=== PATIENT | female | born 1975 | race Caucasian/White ===

== ENCOUNTER 2017-10-26 07:36 | Inpatient (IN) | payer OTHER ==
--- NOTE | 2017-10-26 07:47 | CPEKG ---
Heart Rate: 57 RR Interval: 1053 P-R Interval: 156 QRSD Interval: 78 QT Interval: 428 QTC Interval: 417 P Dayton: 7 QRS Dayton: 82 T Wave Dayton: 25 EKG Severity - BORDERLINE ECG - EKG Impression: SINUS ARRHYTHMIA, RATE 52-63 EKG Impression: VENTRICULAR PREMATURE COMPLEX EKG Impression: INTERPOLATED VENTRICULAR PREMATURE COMPLEX EKG Impression: ST ELEV, PROBABLE NORMAL EARLY REPOL PATTERN Electronically Signed By: Nicola Sanchez 26-Oct-2017 07:52:17
[2017-10-26] MEDS ORDERED: ASPIRIN 325 MG TAB PO ONE (07:49)
[2017-10-26] MEDS ORDERED: ASPIRIN 81 MG CHEWABLE TAB ONE (07:51)
[2017-10-26] MEDS ORDERED: IOPAMIDOL (ISOVUE-370) 150 ML BTL IV ONE (07:53)
[2017-10-26] MEDS ORDERED: MIDAZOLAM 2 MG/2 ML VIAL ONE (07:53)
[2017-10-26] MEDS ORDERED: fentaNYL 100 MCG/2 ML INJ ONE (07:53)
[2017-10-26] MEDS ORDERED: LIDOCAINE 1% 300 MG/30 ML SDV ONE (07:53)
[2017-10-26] MEDS ORDERED: ATROPINE SULFATE 1 MG/10 ML SYR ONE (07:54)
[2017-10-26] MEDS ORDERED: BIVALIRUDIN 250 MG/5 ML VIAL IV ONE (07:54)
[2017-10-26] MEDS ORDERED: HEPARIN 10,000 UNIT/10 ML MDV (1,000 UNIT/ML) ONE (07:54)
--- NOTE | 2017-10-26 07:54 | CPEKG ---
Heart Rate: 73 RR Interval: 822 P-R Interval: 148 QRSD Interval: 76 QT Interval: 416 QTC Interval: 459 P Mcdavid: 46 QRS Mcdavid: 84 T Wave Mcdavid: 44 EKG Severity - ABNORMAL ECG - EKG Impression: SINUS ARRHYTHMIA, RATE 57-75 EKG Impression: LATERAL INFARCT, OLD EKG Impression: BORDERLINE ST ELEVATION, ANTERIOR LEADS Electronically Signed By: Nicola Sanchez 26-Oct-2017 07:57:08
--- NOTE | 2017-10-26 07:56 | EDPHY ---
H & P Stated Complaint: CP Time Seen by Provider: 10/26/17 07:47 HPI/ROS: CHIEF COMPLAINT: Chest pain while running HISTORY OF PRESENT ILLNESS: The patient is a 42-year-old extremely fit thin female who was running this morning when she developed chest pain. She stopped running and drove to the emergency department. She states that her pain began about half an hour ago. She is anxious and states that both hands are beginning to go numb. She denies any history of cardiac or other medical conditions. She has felt slightly nauseous but has not had any vomiting. No lightheadedness or dizziness. No shortness of breath. REVIEW OF SYSTEMS: Constitutional: denies: chills, fever, recent illness, recent injury EENTM: denies: blurred vision, double vision, nose congestion Respiratory: denies: cough, shortness of breath Cardiac: See HPI Gastrointestinal/Abdominal: denies: abdominal pain, diarrhea, nausea, vomiting, blood streaked stools Genitourinary: denies: dysuria, frequency, hematuria, pain Musculoskeletal: denies: joint pain, muscle pain Skin: denies: lesions, rash, jaundice, bruising Neurological: denies: headache, numbness, paresthesia, tingling, dizziness, weakness Hematologic/Lymphatic: denies: blood clots, easy bleeding, easy bruising Immunologic/allergic: denies: HIV/AIDS, transplant EXAM: GENERAL: Pain neck, thin, fit. HEAD: Atraumatic, normocephalic. EYES: Pupils equal round and reactive to light, extraocular movements intact, sclera anicteric, conjunctiva are normal. ENT: TMs normal, nares patent, oropharynx clear without exudates. Moist mucous membranes. NECK: Normal range of motion, supple without lymphadenopathy or JVD. LUNGS: Breath sounds clear to auscultation bilaterally and equal. No wheezes rales or rhonchi. HEART: Regular rate and rhythm without murmurs, rubs or gallops. ABDOMEN: Soft, nontender, normoactive bowel sounds. No guarding, no rebound. No masses appreciated. BACK: No CVA tenderness, no spinal tenderness, step-offs or deformities EXTREMITIES: Normal range of motion, no pitting or edema. No clubbing or cyanosis. NEUROLOGICAL: Cranial nerves II through XII grossly intact. Normal speech, normal gait. 5/5 strength, normal movement in all extremities, normal sensation PSYCH: Normal mood, normal affect. SKIN: Warm, dry, normal turgor, no visible rashes or lesions. Source: Patient, Family Exam Limitations: No limitations - Personal History LMP (Females 10-55): 22-28 Days Ago Current Tetanus/Diphtheria Vaccine: Yes Current Tetanus Diphtheria and Acellular Pertussis (TDAP): Yes Tetanus Vaccine Date: within 10 years - Medical/Surgical History Hx Asthma: No Hx Chronic Respiratory Disease: No Hx Diabetes: No Hx Cardiac Disease: No Hx Renal Disease: No Hx Cirrhosis: No Hx Alcoholism: No Hx HIV/AIDS: No Hx Splenectomy or Spleen Trauma: No Other PMH: denies medical/surg hx - Family History Significant Family History: No pertinent family hx - Social History Smoking Status: Never smoked Alcohol Use: Sober Drug Use: None Constitutional: Initial Vital Signs Temperature (C) 36.4 C 10/26/17 07:37 Heart Rate 84 10/26/17 07:37 Respiratory Rate 20 10/26/17 07:37 Blood Pressure 151/99 H 10/26/17 07:37 O2 Sat (%) 100 10/26/17 07:37 O2 Delivery Mode Room Air Allergies/Adverse Reactions: No Known Allergies Allergy (Unverified 10/26/17 07:37) Home Medications: Medication Instructions Recorded NK [No Known Home Meds] 10/26/17 Medical Decision Making - Diagnostics EKG Interpretation: An EKG obtained and was read and documented in trace view. Please see trace view for full reading and report. ST elevation in V 3 4 and 5, no reciprocal changes Imaging Results: Imaging Impressions Chest X-Ray 10/26/17 07:49 Impression: 1. No acute pulmonary disease. 2. Consider chest two views when the patient's medical condition permits. Imaging: Discussed imaging studies w/ dredge operator supervisor Radiologist ED Course/Re-evaluation: 7:55 a.m. The cardiology PA is here to evaluate. Research Administrator is on their way. 8:30 a.m. on patient's echo she did have some anterior wall wall motion abnormality. She has been taking up to the radiographer cardiac catheterization. Differential Diagnosis: Partial list of the Differential diagnosis considered include but were not limited to; acute coronary disease, anxiety and although unlikely based on the history and physical exam, I also considered PE, dissection, pneumothorax. Critical Care Time: Critical care time spent by me, Dr. Sanchez exclusive with this patient was 30 minutes, exclusive of the PA time exclusive of procedures. The organ system that was at risk was cardiovascular and I gave IV, medications, workup and consultation to prevent worsening of the patient's condition - Data Points Laboratory Results: Laboratory Results 10/26/17 07:54 10/26/17 07:54 10/26/17 10/26/17 10/26/17 07:54 07:54 07:54 WBC RBC Hgb POC Hgb Hct POC Hct MCV MCH MCHC RDW Plt Count MPV Neut % (Auto) Lymph % (Auto) Haskell % (Auto) Eos % (Auto) Baso % (Auto) Nucleat RBC Rel Count Absolute Neuts (auto) Absolute Lymphs (auto) Absolute Monos (auto) Absolute Eos (auto) Absolute Basos (auto) Absolute Nucleated RBC Immature Gran % Immature Gran # PT 13.2 SEC SEC (12.0-15.0) INR 0.98 (0.83-1.16) APTT 22.7 SEC L SEC (23.0-38.0) Turbidity Cancelled POC Sodium Sodium Cancelled POC Potassium Potassium Cancelled POC Chloride Chloride Cancelled Carbon Dioxide Cancelled Anion Gap Cancelled POC BUN BUN Cancelled Creatinine Cancelled POC Creatinine Estimated GFR Cancelled Glucose Cancelled POC Glucose Calcium Cancelled Magnesium Cancelled Troponin I Triglycerides Cancelled Cholesterol Cancelled Cholesterol Risk Factr Cancelled LDL Cholesterol, Calc Cancelled LDL Risk Factor Cancelled VLDL Cholesterol Cancelled Non-HDL Cholesterol Cancelled HDL Cholesterol Cancelled LDL/HDL Ratio Cancelled Cholesterol/HDL Ratio Cancelled Beta HCG, Qual NEGATIVE Specimen Hemolysis Cancelled 10/26/17 10/26/17 10/26/17 07:54 07:54 07:48 WBC 7.54 10^3/uL 10^3/uL (3.80-9.50) RBC 4.75 10^6/uL 10^6/uL (4.18-5.33) Hgb 16.2 g/dL g/dL (12.6-16.3) POC Hgb 15.6 gm/dL gm/dL (12.6-16.3) Hct 44.7 % % (38.0-47.0) POC Hct 46 % % (38-47) MCV 94.1 fL fL (81.5-99.8) MCH 34.1 pg pg (27.9-34.1) MCHC 36.2 g/dL g/dL (32.4-36.7) RDW 12.3 % % (11.5-15.2) Plt Count 208 10^3/uL 10^3/uL (150-400) MPV 10.2 fL fL (8.7-11.7) Neut % (Auto) 42.2 % % (39.3-74.2) Lymph % (Auto) 47.5 % H % (15.0-45.0) Haskell % (Auto) 8.0 % % (4.5-13.0) Eos % (Auto) 1.3 % % (0.6-7.6) Baso % (Auto) 0.9 % % (0.3-1.7) Nucleat RBC Rel Count 0.0 % % (0.0-0.2) Absolute Neuts (auto) 3.18 10^3/uL 10^3/uL (1.70-6.50) Absolute Lymphs (auto) 3.58 10^3/uL H 10^3/uL (1.00-3.00) Absolute Monos (auto) 0.60 10^3/uL 10^3/uL (0.30-0.80) Absolute Eos (auto) 0.10 10^3/uL 10^3/uL (0.03-0.40) Absolute Basos (auto) 0.07 10^3/uL 10^3/uL (0.02-0.10) Absolute Nucleated RBC 0.00 10^3/uL 10^3/uL (0-0.01) Immature Gran % 0.1 % % (0.0-1.1) Immature Gran # 0.01 10^3/uL 10^3/uL (0.00-0.10) PT INR APTT Turbidity POC Sodium 139 mEq/L mEq/L (134-144) Sodium 141 mEq/L mEq/L (135-145) POC Potassium 3.5 mEq/L mEq/L (3.3-5.0) Potassium 4.0 mEq/L mEq/L (3.5-5.2) POC Chloride 104 mEq/L mEq/L (97-110) Chloride 103 mEq/L mEq/L (97-110) Carbon Dioxide 18 mEq/l L mEq/l (22-31) Anion Gap 20 mEq/L H mEq/L (8-16) POC BUN 12 mg/dL mg/dL (7-23) BUN 12 mg/dL mg/dL (7-23) Creatinine 0.9 mg/dL mg/dL (0.6-1.0) POC Creatinine 0.9 mg/dL mg/dL (0.6-1.0) Estimated GFR > 60 Glucose 118 mg/dL H mg/dL (70-100) POC Glucose 122 mg/dL H mg/dL (70-100) Calcium 10.5 mg/dL H mg/dL (8.5-10.4) Magnesium 1.9 mg/dL mg/dL (1.6-2.3) Troponin I < 0.012 ng/mL ng/mL (0.000-0.034) Triglycerides 87 mg/dL mg/dL (35-135) Cholesterol 202 mg/dL H mg/dL (140-200) Cholesterol Risk Factr 0.2 (0.2-1.0) LDL Cholesterol, Calc 51 mg/dL L mg/dL (70-100) LDL Risk Factor 0.4 (0.2-1.0) VLDL Cholesterol 17 mg/dL mg/dL (8-25) Non-HDL Cholesterol 68 mg/dL L mg/dL (90-129) HDL Cholesterol 134 mg/dL H mg/dL (40-95) LDL/HDL Ratio 0.38 RATIO L RATIO (1.00-3.22) Cholesterol/HDL Ratio 1.51 RATIO RATIO (1.00-4.44) Beta HCG, Qual Specimen Hemolysis Medications Given: Nitroglycerin (Nitrostat) 0.4 mg SL Q5M PRN PRN Reason: Chest Pain Last Admin: 10/26/17 08:20 Dose: 0.4 mg Discontinued Medications Aspirin (Aspirin) 325 mg PO EDNOW ONE Stop: 10/26/17 07:50 Last Admin: 10/26/17 07:59 Dose: 325 mg Point of Care Test Results: 10/26/17 07:48 POC Sodium 139 POC Potassium 3.5 POC Chloride 104 POC BUN 12 POC Creatinine 0.9 POC Glucose 122 H Departure - Departure Disposition: [facility] Inpatient Acute Clinical Impression: Chest pain Qualifiers: Chest pain type: unspecified Qualified Code(s): R07.9 - Chest pain, unspecified Condition: Critical
[2017-10-26 08:02] LABS: PLATELET COUNT 208 10^3/uL (150-400)
[2017-10-26] MEDS: NITROGLYCERIN 0.4 MG BTL SL PRN ×2 (08:03→08:20)
[2017-10-26 08:12] LABS: INR 0.98 (0.83-1.16); PROTIME(PATIENT) 13.2 SEC (12.0-15.0)
[2017-10-26] MEDS ORDERED: OXYCODONE/APAP 5/325 TAB PO PRN (08:14)
[2017-10-26] MEDS ORDERED: TEMAZEPAM 15 MG CAP PO PRN (08:14)
[2017-10-26] MEDS ORDERED: CLOPIDOGREL BISULFATE 75 MG TAB PO ONE (08:14)
[2017-10-26] MEDS ORDERED: HYDROCODONE/APAP 5/325 TAB PO PRN (08:14)
[2017-10-26] MEDS ORDERED: NITROGLYCERIN 0.4 MG BTL SL PRN (08:14)
[2017-10-26] MEDS ORDERED: LORazepam 2 MG/ML INJ IVP PRN (08:14)
[2017-10-26] MEDS ORDERED: ATROPINE SULFATE 1 MG/10 ML SYR IVP PRN (08:14)
[2017-10-26] MEDS ORDERED: ONDANSETRON 4 MG/2 ML VIAL IVP PRN (08:14)
[2017-10-26] MEDS ORDERED: DIAZEPAM 5 MG TAB PO ONE (08:18)
[2017-10-26] MEDS ORDERED: diphenhydrAMINE 25 MG CAP PO ONE (08:18)
[2017-10-26] MEDS ORDERED: FAMOTIDINE 20 MG TAB PO ONE (08:18)
[2017-10-26] MEDS ORDERED: NS 1,000 ML IV SCH ×2 (08:30→10:15)
[2017-10-26] MEDS ORDERED: NITROGLYCERIN 1,500 MCG/15 ML VIAL MISC ONE (08:41)
--- NOTE | 2017-10-26 08:54 | PDDXCAT ---
Diagnostic Cath Note - . Date: 10/26/17 Percussion Instrument Repairer: Dean - Procedure Access: right groin Procedure: left heart catheterization - Materials Left Heart Cath size: 6F Left Heart Cath materials: standard multipack (JL4, JR4, pigtail) - Findings-Left Heart Catheterization LAD: Dissection. 95% obstruction LVEF: 50% with distal inferior wall hypokinesis Complications: None. Estimated blood loss: <50ml Intervention: A 6 Serbian 3.5 JL Convey guide catheter support. A 0.014 Intuition wire was advanced across the LAD under direct fluoroscopic and angiographic guidance A Synergy 2.0 x 28mm stent 2.5x 20mm Synergy stent 3.0 x 12mm Synergy stent 95% obstruction SCAD Patient Problems: Problems Problem Status Onset Chest pain Acute Pneumothorax, left Acute Rib fracture Acute
[2017-10-26] MEDS ORDERED: PRASUGREL HCL 10 MG TAB ONE (09:11)
--- NOTE | 2017-10-26 09:36 | CPEKG ---
Heart Rate: 38 RR Interval: 1579 P-R Interval: 160 QRSD Interval: 74 QT Interval: 528 QTC Interval: 420 P Mulberry: 55 QRS Mulberry: 76 T Wave Mulberry: -10 EKG Severity - OTHERWISE NORMAL ECG - EKG Impression: SINUS BRADYCARDIA Electronically Signed By: Kwadwo Stoner 26-Oct-2017 16:18:51
[2017-10-26] MEDS ORDERED: PRASUGREL HCL 10 MG TAB PO ONE (10:01)
--- NOTE | 2017-10-26 11:00 | GHP ---
[f rep st] HISTORY AND PHYSICAL DATE OF ADMISSION: 10/26/2017 CHIEF COMPLAINT: ST-elevation IL. HISTORY OF PRESENT ILLNESS: The patient is a 42-year-old female with a past medical history of asymp tomatic bradycardia, who is admitted through the emergency department after being noted to have an ST -elevation IL. Prior to arrival in the emergency department, she had noted the onset of chest pain w hile running on the treadmill. She describes a dull midsternal chest discomfort with radiation into her bilateral arms associated with dyspnea and diaphoresis. She slowed down her pace and symptoms pe rsisted. She was driving home and called her mother, who recommended she come into the emergency dep artment for further evaluation. At that time, she was noted to have ST elevations in V3 through V5, and a cardiac alert was called. Despite several doses of nitroglycerin, she did not achieve pain con trol. She was urgently taken to the cardiac catheterization laboratory after echo showed apical wall motion abnormality. 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 PAST MEDICAL HISTORY: Includes asymptomatic bradycardia. SOCIAL HISTORY: Patient is . She denies any tobacco abuse. No significant alcohol intake. PAST SURGICAL HISTORY: Skin biopsy. FAMILY HISTORY: Celiac disease and pancreatic cancer. OUTPATIENT MEDICATIONS: She has a ParaGard IUD. ALLERGIES: No known drug allergies. REVIEW OF SYSTEMS: As per HPI. A complete 10-point review of systems was obtained and is negative e xcept for what is dictated. PHYSICAL EXAMINATION: VITAL SIGNS: BP of 117/78, heart rate 58, respirations 16, O2 saturation 95% on 2 L/min. GENERAL: She is a very pleasant female, in mild distress. HEENT: Head is normocephali c, atraumatic. Eyes are without scleral icterus. Mucous membranes moist. HEART: Regular rate and rhythm. LUNGS: Clear. ABDOMEN: Asthenic with normoactive bowel sounds. SKIN: Warm and dry. LORENZA RO: No focal deficits detected. LABORATORY DATA: CBC with WBC 7.54, hemoglobin 16.2, hematocrit 44.7, platelet count of 208. BMP wi th sodium 141, potassium 4, chloride 103, CO2 of 18, BUN 12, creatinine 0.9, glucose 118. LDL 51, to janay cholesterol of 202, HDL of 134. Beta HCG is negative. Troponin initially was less than 0.012. 12-lead ECG personally interpreted demonstrates sinus rhythm with ST-elevation in V3 through V5. Merari st x-ray shows no acute cardiopulmonary process. This was personally reviewed. I discussed care wit h Dr. Moran and Dr. Sanchez. IMPRESSION AND PLAN: The patient is a 42-year-old female who presents with chest pain. 1. ST-elevation myocardial infarction. She is found to have an acute ST-elevation IL. Differential for this includes spontaneous coronary artery dissection, takotsubo variant, or myocarditis. Upon b eing taken to the cardiac catheterization laboratory, she was found to have mid-left anterior descend ing artery dissection which was treated with percutaneous transluminal coronary angioplasty and stent ing. She is being admitted to PCU for further observation and care. 2. Chest pain due to above. 3. Code status: Patient will be full code. 4. Inpatient status: Patient is being admitted to inpatient status for post-myocardial infarction c are. Appropriate medical therapies are to be initiated in this timeframe. /[id number]/MODL
--- NOTE | 2017-10-26 12:40 | ECHO ---
[email or web address] [place] [id number] Main: [phone] Fax: Transthoracic Echocardiogram Name: CORNELL ROBINS MR#: [id number] Study Date: 10/26/2017 Study Time: 08:16 AM Date of : 1975 Age: 42 year(s) Height: ( ) Weight: ( ) BSA: Gender: Female Examination: Echo Indication: Cardiac Alert Image Quality: Contrast: Requested by: Nicola Sanchez BP: / Heart Rate: Rhythm: Indication: Cardiac Alert Procedure Staff Skin Peeling Machine Operator: Pedro Williamson Physician: Brandon Haider Requesting Provider: Conclusions: There is focal mid to apical anteroseptal hypokinesis. There is apical hypokinesis.. This is a stat limited echo to evaluate for LV wall motion during a cardiac alert. Low normal LVEF was noted (50%) Measurements: Chambers Valvular Assessment AV/MV Valvular Assessment TV/PV Normal Normal Normal Name Value Range Name Value Range Name Value Range Continued Measurements: Findings: Left Ventricle: There is focal mid to apical anteroseptal hypokinesis. There is apical hypokinesis.. Exam Comments: This is a stat limited echo to evaluate for LV wall motion during a cardiac alert. (No Signature Object) Patient: CORNELL ROBINS Study Date: 10/26/2017 Page 1 of 1 08:16 AM [id number]
[2017-10-26 12:42] LABS: CREATINE KINASE 45 IU/L (0-156)
[2017-10-26 14:18] LABS: CREATINE KINASE 51 IU/L (0-156)
[2017-10-26] MEDS: ASPIRIN EC 325 MG TAB PO SCH (17:14)
[2017-10-26 18:47] LABS: CREATINE KINASE 57 IU/L (0-156)
[2017-10-26 20:57] LABS: CREATINE KINASE 53 IU/L (0-156)
--- NOTE | 2017-10-27 04:16 | CPIP ---
[f rep st] INVASIVE CARDIAC PROCEDURE DATE OF PROCEDURE: 10/26/2017 PROCEDURE PERFORMED: 1. Selective coronary angiography. 2. Left heart catheterization. 3. Left ventriculogram. 4. Percutaneous transluminal coronary angioplasty and stent implantation of the left anterior descen ding with initially a 3.0 x 28 Synergy drug-eluting stent overlapping distally with a 2.5 x 20 Synerg y drug-eluting stent and then overlapping proximally to cuff a dissection with a 3.0 x 12 Synergy yahir g-eluting stent. COMPLICATIONS: None. INDICATIONS/APPROPRIATE USE CRITERIA: The patient had presented to the hospital, when chest pain and pressure began when exercising while running a less than 640 minute mile. She experienced sudden on set of severe chest discomfort and drove herself to the emergency department for further evaluation. An EKG was obtained within minutes of her arrival, documenting ST-segment elevation injury pattern s uggestive of an anterior myocardial infarction. PROCEDURE IN DETAIL: After informed consent was obtained, because of the emergency nature of the sit uation, the patient was taken to the laboratory tester after an echocardiogram was performed, documented dista l anterior wall and apical hypokinesis, suggestive of a problem with blood flow to the left ventricle versus a Takotsubo type syndrome. On the differential was the consideration of SCAD, Takotsubo card iomyopathy versus a focal myocarditis/pericarditis type picture. The region of the right groin was cleaned, prepped, and draped in sterile fashion. A micropuncture s et was used to gain access to the right common femoral artery. Patient then underwent the previously mentioned diagnostic procedure with a JR4 diagnostic catheter, a 6-Faroese pigtail catheter, and a 6- Faroese JL3.5 guiding catheter. Standard wire exchange technique was utilized for all catheter exchan ges. The right coronary artery is dominant giving rise to posterior descending as well as posterolateral v entricular branch. It is a very large vessel and pristine without evidence of atherosclerosis or lum inal irregularity. There was GALINA-3 flow throughout without evidence of aatni-pf-hpgx collaterals. Guiding catheter was then advanced over the wire and manipulated with care into the left main coronar y ostium. The left main is quite large, approximately 6-7 mm in size, bifurcating into an LAD and ci rcumflex system. The circumflex is quite large, approximately 5 mm in size, and gives rise to import ant obtuse marginal branches without evidence of flow-limiting obstruction, dissection, or thrombus. The LAD arises in its usual location and has GALINA-3 flow in its proximal segment. There is no eviden ce of luminal irregularity. After the 2nd diagonal branch there is severe and near total occlusion o f the blood vessel with 99% long obstruction and what appears to be a dissection plane consistent wit h spontaneous coronary artery dissection of the mid LAD with GALINA-1 flow into the distal vessel and i ncomplete opacification of the distal vessel, again consistent with GALINA-1 flow. We turned our attention to the lesion in question. A 0.014 Intuition wire was advanced carefully acr oss the dissection with maintenance of the wire in the true lumen, which was confirmed by placing the wire in the distal vessel and then manipulating with care into multiple branches. A the loop of the wire was performed. It was placed in the distal and wrap-around LAD. The mid-LAD was then stented with a 2.5 x 28 Synergy drug-eluting stent. It was implanted at the lowest pressure that would resul t in appropriate size for the blood vessel. This resulted in propagation of the presumed intramural thrombus within the media both distally and proximally in the lesion. We therefore had to place a 2n d stent distally, 2 5 x 20 in an overlapping manner to trap the dissection and intramural thrombus. This procedure was repeated proximally with a 3.0 x 12 Synergy drug-eluting stent. With stent expans ion and geometry, 0% residual stenosis status post PTCA and stent placement. The patient underwent left heart catheterization demonstrating elevated left ventricular end-diastoli c pressure measured at 17 mmHg. The patient underwent left ventriculogram in the BELLO projection, dem onstrating mildly depressed left ventricular systolic function. Ejection fraction was 50% with mid a nterior wall hypokinesis consistent with the diagnosis of spontaneous coronary artery dissection and threatened myocardial infarction. 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 The proximal ascending aorta does appear to be prominent to me for this technique compared to the usual size I would expect in a 42-year-old female . IMPRESSION AND PLAN: Acute anterior ST-segment elevation myocardial infarction secondary to spontane ous coronary artery dissection in an exercising young woman. The differential diagnosis for this pat ient includes, but is not limited to fibromuscular dysplasia, Marfan syndrome, other connective tissu e disorder such as Davonte-Danlos of the vascular type. The patient will likely need a workup to help rule out fibromuscular dysplasia during this hospitalization. Copy requested to: PRIMARY CARE /[id number]/MODL
[2017-10-27 04:35] LABS: PLATELET COUNT 179 10^3/uL (150-400)
--- NOTE | 2017-10-27 08:59 | CPEKG ---
Heart Rate: 54 RR Interval: 1111 P-R Interval: 168 QRSD Interval: 74 QT Interval: 500 QTC Interval: 474 P Aurora: 52 QRS Aurora: 73 T Wave Aurora: -67 EKG Severity - ABNORMAL ECG - EKG Impression: SINUS RHYTHM EKG Impression: LEFT VENTRICULAR HYPERTROPHY EKG Impression: ABNORMAL TWI THROUGHOUT, CONSIDER DIFFUSE CORONARY ISCHEMIA OR RETAIL SALES CLERK EVENT Electronically Signed By: Kwadwo Stoner 27-Oct-2017 15:22:47
[2017-10-27] MEDS ORDERED: LISINOPRIL 2.5 MG TAB PO SCH (09:00)
[2017-10-27] MEDS ORDERED: BISOPROLOL FUMARATE 5 MG TAB PO SCH (09:00)
[2017-10-27] MEDS ORDERED: ROSUVASTATIN CALCIUM 10 MG TAB PO SCH (09:00)
[2017-10-27] MEDS ORDERED: CLOPIDOGREL BISULFATE 75 MG TAB PO SCH (09:00)
[2017-10-27] MEDS: ASPIRIN EC 325 MG TAB PO SCH (09:02)
[2017-10-27] MEDS: PRASUGREL HCL 5 MG TAB PO SCH (09:02)
--- NOTE | 2017-10-27 10:51 | ASMTCASEMG ---
Living Arrangements What is your living Answers: With Spouse arrangement? Who do you live with? Type Of Residence What kind of residence do Answers: House you live in? Discharge Plan Comments Coordination Status Comments Notes: Pt is a 42 y/o female admitted for a stemi. Pt will most likely d/c without any needs when medically stable. No therapies ordered at this time. CM available for changes. Plan: Independent Date Signed: 10/27/2017 10:51 AM Electronically Signed By:GASTON Munguia
--- NOTE | 2017-10-27 13:00 | PDCARPN ---
Cardiology Progress Note Chief Complaint: S/p LAD stents after SCAD causing acute anterior IL. Assessment/Plan: Assessment: I reevaluated the patient. The groin site appears to be healing well with minimal ecchymosis, there are no signs of infection. We had a lengthy discussion about vigorous exercise. I recommend the patient does not exercise vigorously for the next 4-6 weeks at minimum. The patient tells me she has been under increased stress these last 3 months. During the onset of her symptoms she was running at a normal pace for her. She developed a burning sensation in her chest and pain in both upper extremities just before her symptoms became so severe that she could no longer ignore them, and she began to hyperventilate and drove herself to the Emergency Department. The patient is no longer feeling symptomatic. Her blood pressure and heart rate have remained stable. Plan: Vascular survey with CTA of the head and neck vessels and CTA of the thoracic aorta with bilateral lower extremity run off through the iliac and renals to evaluate for evidence of fibromuscular dysplasia as well as to formally measure the size of the ascending thoracic aorta. She is scheduled to have a limited echo today to evaluate LV function and check for mitral or tricuspid valve prolapse. 10/27/17 12:54 10/27/17 14:15 Reviewed/Discussed With: family, hospitalist Objective: Vital Signs (8 Hrs) Temp Pulse Resp BP Pulse Ox 10/27/17 07:25 36.9 C 55 L 14 106/70 96 Intake/Output (24 Hrs) 10/26/17 10/27/17 10/28/17 05:59 05:59 05:59 Intake Total 750 720 Output Total 1250 Balance -500 720 Intake: Oral (ml) 750 720 IV Intake (ml) 0 Output: Urine (ml) 1250 Toilet 1250 Other: Number of Voids Toilet 2 Result Diagrams: 10/27/17 03:49 10/27/17 03:49 Cardiac Labs: Cardiac Lab Results (72 Hrs) 10/27/17 10/26/17 10/26/17 03:49 19:53 16:30 CK-MB (CK-2) Fraction 3.15 3.29 H 4.83 H Troponin I 1.040 H 1.420 H 1.560 H EKG: Showed diffuse sinus rhythm with diffuse T wave inversions consistent with recent myocardial ischemia. Telemetry: normal sinus rhythm with no ectopy and no significant tachydysrhythmia and frequent sinus bradycardia Echocardiogram: Pending. Please see official report. - Physical Exam Constitutional: WDWN Eyes: PERRL, EOMI Ears, Nose, Mouth, Throat: moist mucous membranes Cardiovascular: regular rate and rhythm Respiratory: clear to auscultate bilat Gastrointestinal: normoactive bowel sounds Skin: no rashes Neurologic: AAOx3 Psychiatric: cooperative ICD10 Worksheet Patient Problems: Problems Problem Status Onset Chest pain Acute Spontaneous dissection of coronary artery Acute Pneumothorax, left Acute Rib fracture Acute - ICD10 Problem Qualifiers (1) Spontaneous dissection of coronary artery
[2017-10-27] MEDS: LISINOPRIL 2.5 MG TAB PO SCH (13:50)
[2017-10-27] MEDS ORDERED: IOPAMIDOL (ISOVUE 370) 100 ML BTL IV ONE (14:20)
--- NOTE | 2017-10-27 15:54 | ECHO ---
[email or web address] [address] [address] Main: [phone] Fax: Transthoracic Echocardiogram Name: CORNELL ROBINS MR#: [id number] Study Date: 10/27/2017 Study Time: 12:35 PM Date of : 1975 Age: 42 year(s) Height: 175.3 cm (69 in.) Weight: 54.43 kg (120 lb.) BSA: 1.66 m2 Gender: Female Examination: Echo Indication: Post Stent, LAD dissection repair Image Quality: Contrast: Requested by: Sandro Moran BP: 106 mmHg/70 mmHg Heart Rate: Rhythm: Normal sinus rhythm Indication: Post Stent, LAD dissection repair Procedure Staff Cupola Tapper Helper: Pedro Kahn Reading Physician: Brandon Haider Requesting Provider: Conclusions: Normal global systolic LV function. EF is 61 %. The left atrium is normal in size. The right atrium is normal in size. There is no mitral valve regurgitation. The aortic valve is normal in appearance and function. Measurements: Chambers Valvular Assessment AV/MV Valvular Assessment TV/PV Normal Normal Normal Name Value Range Name Value Range Name Value Range Ao Emma (MM): 2.5 cm (2.2 cm-3.7 AV Vmax: 1.18 m/s (1 m/s-1.7 TR Vmax: 2.25 mm/s ( - ) cm) m/s) TR PGmax: 20 mmHg ( - ) IVSd (2D): 0.7 cm (0.6 cm-1.1 AV maxP mmHg ( - ) syst. PAP: 25 mmHg ( - ) cm) LVOT Vmax: 0.96 m/s (0.7 m/s-1.1 PV Vmax: 0.99 m/s (0.6 m/s-0.9 LVDd (2D): 4.5 cm (3.9 cm-5.3 m/s) m/s) cm) MV E Vmax: 0.50 m/s ( - ) PV PGmax: 4 mmHg ( - ) LVDs (2D): 3.0 cm (2.1 cm-4 MV A Vmax: 0.37 m/s ( - ) cm) MV E/A: 1.35 ( - ) LVPWd (2D): 0.7 cm ( - ) LVEF (2D): 61 (>=54 %) Continued Measurements: Chambers Valvular Assessment AV/MV Valvular Assessment TV/PV Name Value Name Value Name Value LADs Lon.7 cm MV E' Septal: 0.07 m/s CVP (est.): 5 mmHg LA Area: 12.2 cm2 MV E/E' Septal: 7.20 MV E/E' Lateral: 4.30 Patient: CORNELL ROBINS Study Date: 10/27/2017 Page 1 of 2 12:35 PM Findings: Left Ventricle: Normal size left ventricle. Normal global systolic LV function. EF is 61 %. No regional wall motion abnormality. Right Ventricle: Normal size right ventricle. Left Atrium: The left atrium is normal in size. Right Atrium: The right atrium is normal in size. Mitral Valve: The mitral valve is normal in appearance and function. There is no mitral valve regurgitation. Aortic Valve: The aortic valve is tri-leaflet. The aortic valve is normal in appearance and function. Tricuspid Valve: The tricuspid valve appears normal. Pulmonic Valve: Pulmonary valve not well visualized. Aorta: The aorta is normal. Pericardium: No pericardial effusion. Exam Comments: Compared to the previous exam of 10/26/16 the wall motion of the mid to distal anteroseptal segment has improved.. (No Signature Object) Patient: CORNELL ROBINS Study Date: 10/27/2017 Page 2 of 2 12:35 PM [id number]
[2017-10-28] MEDS: PRASUGREL HCL 5 MG TAB PO SCH (09:08)
[2017-10-28] MEDS: ASPIRIN EC 325 MG TAB PO SCH (09:08)
[2017-10-28] MEDS: LISINOPRIL 2.5 MG TAB PO SCH (09:14)
[2017-10-28 11:06] VITALS: BP 108/84; PULSE 62; RESP 22; TEMP 97.9; O2SAT 95
--- NOTE | 2017-10-28 14:24 | ASDISCHSUM ---
Discharge Information Plan Status:Home with No Needs Medically Cleared to Leave:10/27/2017 Discharge Date:10/28/2017 12:59 PM CM D/C Disposition: ADT D/C Disposition:Home, Routine, Self-Care Projected Discharge Date:10/28/2017 12:00 AM Transportation at D/C: Discharge Delay Reason: Follow-Up Date:10/28/2017 12:00 AM Discharge Slot: Final Diagnosis: Placement Information Patient Contact Information Contact Name:BRENDA Relationship:Mother Address:[address] [place] [address] Work Phone: City:[employer] [facility] Phone: State/Zip Code:[place] [address] Email: Financial Information Financial Class:HMO and PPO Plans Primary Plan Desc:ROSALINA OSEGUERA PPO Primary Plan Number:[id number] Secondary Plan Desc: Secondary Plan Number: Assessment Information [facility] Initial CM Assessment Living Arrangements What is your living Answers: With Spouse arrangement? Who do you live with? Type Of Residence What kind of residence do Answers: House you live in? Discharge Plan Comments Coordination Status Comments Notes: Pt is a 42 y/o female admitted for a stemi. Pt will most likely d/c without any needs when medically stable. No therapies ordered at this time. CM available for changes. Plan: Independent Date Signed: 10/27/2017 10:51 AM Electronically Signed By:GASTON Munguia Intervention Information
--- NOTE | 2017-10-28 19:49 | GDS ---
[f rep st] DISCHARGE SUMMARY ADMITTING DIAGNOSES: 1. Acute anterior ST-elevation myocardial infarction in progress. 2. Spontaneous coronary artery dissection. DISCHARGE DIAGNOSES: Spontaneous coronary artery dissection, status post PTCA and stent placement of the LAD x3. (Please see the procedure note for details of that procedure) HISTORY OF PRESENT ILLNESS: Please see the recently dictated H and P. Briefly, the patient was on a run on a treadmill at [employer], when she experienced the acute onset of sudden chest pain and pr essure with associated shortness of breath and difficulty breathing with pain radiating into her arms , elbows, and forearms along the medial aspect bilaterally. The patient presented to the emergency [facility] in the customer energy specialist hours of 10/26. An EKG was probably obtained, demonstrating ST-segmen t elevation in the anterior precordial leads suggestive of an anterior injury pattern. An echocardio gram was obtained, documenting segmental wall motion abnormalities consistent with a mid to distal LA D occlusion and impairment of blood flow. HOSPITAL COURSE: The patient was taken emergently to the cardiac catheterization laboratory and unde rwent successful PTCA and stent placement because of intermittent GALINA 0 and GALINA 1 flow documented o n cinefluoroscopy with associated chest pain, which was ongoing, severe and unrelenting. Because of these features, the patient underwent stent implantation. Multiple stents were required to trap the intramural thrombus to get to the sidewall and blood vessel. This clearly was a spontaneous coronary artery dissection of the mid LAD with luminal compromise of approximately 99%. The patient was admitted overnight and her heart rhythm followed. 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 lower dose b ecause of her body weight of less than kg, and lisinopril was added as the patient had a n onhormonal IUD in place, and does not plan to have other children. The patient's hospital course was uncomplicated. A CT vascular survey including her head and neck ve ssels of the thoracic aorta with 3-dimensional reconstruction and runoff into the mesenteric, renal, and iliac vessels was performed, documenting no extracardiac vascular abnormalities. Specifically, marjorie bingham did not have evidence of dissection, aneurysm, or fibromuscular dysplasia. All the aortas tamia eared to be pristine, and this was very high quality study with no motion artifact. On the morning of her discharge from the hospital, the patient is medically ready for discharge. She is to be placed on exercise restriction. I do want her to be active and walking, but she is to do n o exercise that would result in her getting red in the face, hot or sweaty. I have asked that she av oid lifting more than 8 pounds in either hand. I have asked that she also not lift her kids who are 6 and 9 years old, and avoid lifting a total amount of weight that is greater than 15-20 pounds until her followup with me which is scheduled on November. The patient's discharge medications ar e to include aspirin 325 mg for the first month, followed by 81 mg, along with Effient 5 mg daily to be taken as dual antiplatelet therapy to complete 1 year of treatment following overlapping stent imp lantation. The patient has been referred to cardiac rehab. The patient has been under a great deal of stress recently due to an undisclosed issue, and I have asked that she try to reduce the stress in her life if possible and, again, to avoid strenuous exercise until her followup with me in approxima tely 3 weeks. She is to return promptly to the emergency department should she experience chest disc omfort, pressure, tightness, shortness of breath, or other clinical symptoms of concern. I think it would be reasonable to consider genetic evaluation for Marfan syndrome or Davonte-Danlos type IV. Copy requested to: /[id number]/MODL
== END 2017-10-28 12:59 | disposition home or self-care (01) | DRG 246 ==
LOC: F2W 15:00 → OBSVTOIN 16:15
PROVIDERS: ADMIT Internal Medicine Cardiovascular Disease; ATTEND Internal Medicine Cardiovascular Disease
PROC: B2111ZZ Fluoroscopy of Multiple Coronary Arteries using Low Osmolar Contrast (ICD-10-PCS; principal; 2017-10-26)
PROC: B2151ZZ Fluoroscopy of Left Heart using Low Osmolar Contrast (ICD-10-PCS; principal; 2017-10-26)
PROC: 4A023N7 Measurement of Cardiac Sampling and Pressure, Left Heart, Percutaneous Approach (ICD-10-PCS; principal; 2017-10-26)
PROC: 027036Z Dilation of Coronary Artery, One Artery with Three Drug-eluting Intraluminal Devices, Percutaneous Approach (ICD-10-PCS; principal; 2017-10-26)
DX: I21.02 ST elevation (STEMI) myocardial infarction involving left anterior descending coronary artery (principal); I25.42 Coronary artery dissection
CPT/HCPCS: 82947-QW; C1769; C1874; C1887; C9606; J0461; J0583; J1644; J2250; J3010; Q9967

== ENCOUNTER → 2018-07-06 | Outpatient (CLI) | payer OTHER ==
[~2018-07-06] MED LIST: IOPAMIDOL (ISOVUE 370) 100 ML BTL IV ONE
== END ==
LOC: FIMAGING 10:57
PROVIDERS: ATTEND Internal Medicine Cardiovascular Disease
DX: R09.89 Other specified symptoms and signs involving the circulatory and respiratory systems (principal)
CPT/HCPCS: Q9967

== ENCOUNTER → 2018-11-16 | Outpatient (CLI) | payer OTHER | LOC: FIMAGING 16:45 | PROVIDERS: ATTEND Internal Medicine Cardiovascular Disease | DX: E04.1 Nontoxic single thyroid nodule (principal) ==

== ENCOUNTER → 2018-12-22 | Outpatient (CLI) | payer OTHER ==
[~2018-12-22] MED LIST changes: -IOPAMIDOL (ISOVUE 370) 100 ML BTL IV ONE; +LIDOCAINE 1% 300 MG/30 ML SDV ONE
== END ==
LOC: FIMAGING 12:29
PROVIDERS: ATTEND Internal Medicine Cardiovascular Disease
PROC: 0G9K3ZX Drainage of Thyroid Gland, Percutaneous Approach, Diagnostic (ICD-10-PCS; principal; 2018-12-22)
DX: E04.1 Nontoxic single thyroid nodule (principal)

== ENCOUNTER 2019-02-13 10:20 | Observation (INO) | payer OTHER ==
[2019-02-13] MEDS ORDERED: BACITRACIN ZINC 0.5 OZ OINTTUBE TP ONE (10:27)
[2019-02-13] MEDS ORDERED: LIDO/EPI 1% **Not for Epidural 20 ML MDV ONE (10:27)
[2019-02-13] MEDS ORDERED: ceFAZolin 2 GM/DEXTROSE 100 ML IV ONE (10:30)
[2019-02-13] MEDS ORDERED: LR 1,000 ML IV ONE (10:31)
[2019-02-13] MEDS ORDERED: BACITRACIN 50,000 UNITS/10 ML SYR IRR ONE (11:39)
[2019-02-13] MEDS ORDERED: MIDAZOLAM 2 MG/2 ML VIAL IVP ONE (11:44)
[2019-02-13] MEDS ORDERED: PROPOFOL 200 MG/20 ML VIAL ONE (11:58)
[2019-02-13] MEDS ORDERED: fentaNYL 100 MCG/2 ML INJ ONE ×3 (11:58→14:38)
[2019-02-13] MEDS ORDERED: LIDOCAINE 2% 100 MG/5 ML SYR ONE (11:58)
[2019-02-13] MEDS ORDERED: ROCURONIUM 50 MG/5 ML VIAL ONE (11:58)
[2019-02-13] MEDS ORDERED: ONDANSETRON 4 MG/2 ML VIAL ONE ×2 (12:00→14:17)
[2019-02-13] MEDS ORDERED: DEXAMETHASONE 4 MG/ML VIAL ONE (12:00)
[2019-02-13] MEDS: LIDO/EPI 1% **for epidural** 30 ML SDV ONE ×2 (12:51→14:01)
[2019-02-13] MEDS ORDERED: PROMETHAZINE HCL 25 MG/ML INJ IVP PRN (13:51)
[2019-02-13] MEDS ORDERED: HYDROCODONE/APAP 5/325 TAB PO PRN (13:51)
[2019-02-13] MEDS ORDERED: oxyCODONE IR 5 MG TAB PO PRN (13:51)
[2019-02-13] MEDS ORDERED: ONDANSETRON 4 MG/2 ML VIAL IVP PRN (13:51)
[2019-02-13] MEDS ORDERED: DIAZEPAM 10 MG/2 ML SYR IVP PRN (13:51)
[2019-02-13] MEDS ORDERED: fentaNYL 100 MCG/2 ML INJ IVP PRN (13:51)
[2019-02-13] MEDS ORDERED: NALOXONE HCL 0.4 MG/ML INJ IVP PRN (13:51)
[2019-02-13] MEDS ORDERED: ACETAMINOPHEN 500 MG TAB PO PRN (13:51)
[2019-02-13] MEDS ORDERED: ACETAMINOPHEN 160 MG/5 ML UDCUP PO PRN (14:21)
[2019-02-13] MEDS ORDERED: D5W 1/2 NS 1,000 ML IV SCH (14:30)
[2019-02-13] MEDS ORDERED: PROMETHAZINE HCL 25 MG/ML INJ ONE (14:38)
[2019-02-13] MEDS ORDERED: HYDROmorphONE/DILAUDID 1 MG/ML INJ ONE (15:04)
[2019-02-13] MEDS: HYDROmorphONE/DILAUDID 1 MG/ML INJ IVP PRN ×2 (15:06→16:08)
[2019-02-13] MEDS ORDERED: traMADol 50 MG TAB PO PRN (18:09)
[2019-02-13] MEDS: ACETAMINOPHEN 650 MG/20.3 ML UDCUP PO PRN ×2 (18:14→22:28)
[2019-02-14] MEDS: HYDROCOD/APAP 7.5/325 IN 15ML UDCUP PO PRN ×2 (00:59→07:23)
== END 2019-02-14 10:07 | disposition home or self-care (01) ==
DX: D34 Benign neoplasm of thyroid gland (principal); I25.10 Atherosclerotic heart disease of native coronary artery without angina pectoris; Z95.5 Presence of coronary angioplasty implant and graft
CPT/HCPCS: 60210; G0378